=== PATIENT | male | born 1950 | race Caucasian/White ===

== ENCOUNTER 2016-06-23 05:48 | Emergency (ER) | payer MEDICARE ==
[2016-06-23 07:01] LABS: #Basophils 0.2 thou/uL (0.0-0.2); #Lymphocytes 0.6 thou/uL (1.20-3.40); #Monocytes 0.9 thou/uL (0.11-0.59); #Neutrophils 15.6 thou/uL (1.40-6.50); %Basophils 0.9 % (0.0-1.0); %Eosinophils 0.2 % (0.0-10.0); %Lymphocytes 3.7 % (21.0-51.0); %Neutrophils 90.3 % (42.0-75.0); Hemoglobin 9.5 g/dL (14.0-18.0); Mean Corpuscular Hemoglobin 31.6 pg (27.0-31.0); Mean Corpuscular Volume 95.8 fl (80.0-94.0); Mean Platelet Volume 6.9 fL (7.4-10.4); Platelet Count 170 thou/uL (130-400); RBC Distribution Width 14.6 % (11.5-14.5); White Blood Cell (WBC) Count 17.3 thou/uL (4.8-10.8)
[2016-06-23 07:16] LABS: ALT (SGPT) 14 U/L (8-55); AST (SGOT) 20 U/L (5-34); Albumin 2.5 g/dL (3.4-4.8); Alkaline Phosphatase 164 U/L (40-150); Anion Gap 14 mmol/L (10-20); BUN (Urea Nitrogen) 30 mg/dL (8.4-25.7); Bilirubin, Total 0.4 mg/dL (0.2-1.2); Calc. Creatinine Clearance 0 mL/min (70-130); Carbon Dioxide 26 mmol/L (23-31); Chloride 107 mmol/L (98-107); Estimated GFR-MDRD 26; Globulin 3.3 g/dL (2.4-3.5); Glucose 136 mg/dL (80-115); Potassium 3.7 mmol/L (3.5-5.1); Protein, Total 5.8 g/dL (5.8-8.1); Sodium 143 mmol/L (136-145)
[2016-06-23 07:17] LABS: CKMB 2.5 ng/mL (0-6.6); Troponin I 0.034 ng/mL (< 0.028)
[2016-06-23] MEDS ORDERED: cefTRIAXone\\ROCEPHIN 1 GM VIAL ONE (08:13)
[2016-06-23] MEDS ORDERED: Sodium Chloride 0.9% 100 ML ONE (08:13)
[2016-06-23] MEDS ORDERED: Dextrose 50% Abboject 50 ML SYRINGE ONE (08:44)
--- NOTE | 2016-06-23 09:15 | RAD ---
PORTABLE CHEST: Date: 06-23-16 An AP portable film at 0606 is compared with a 06-06-[address] [facility]. FINDINGS: Some pleural fluid is present on the left and it seems a little greater than before. There is hazine ss in the right lower lobe which was not present before. Developing infiltrate here is presumed. I c annot exclude pneumonia. It is difficult to see well in the left base. The heart is mildly enlarged. A multi-lumen catheter enters from the left with its tip in the vicinity of the distal superior cory a cava as before. IMPRESSION: Interval infiltrative changes in the right base and slight increase in left pleural effusion. POS: HOME
== END 2016-06-23 09:06 | disposition short-term general hospital (02) ==
LOC: BURERS 05:48
DX: J18.9 Pneumonia, unspecified organism (principal); I50.9 Heart failure, unspecified; E78.5 Hyperlipidemia, unspecified; I25.10 Atherosclerotic heart disease of native coronary artery without angina pectoris; E11.9 Type 2 diabetes mellitus without complications; Z79.82 Long term (current) use of aspirin; Z79.899 Other long term (current) drug therapy; Z86.73 Personal history of transient ischemic attack (TIA), and cerebral infarction without residual deficits
CPT/HCPCS: 36416; 71010; 80053; 82553; 83880; 84484; 85025; 87040; 94640; 96365; 96375; 36415-59; J0696; J7050; J7620